=== PATIENT | male | born 1965 | race Caucasian/White ===

== ENCOUNTER 2023-11-05 07:13 | Day surgery (SDC) | payer OTHER ==
[~2023-11-05] VITALS: Ht 175.3 cm; Wt 71.9 kg
[~2023-11-05 07:13] MED LIST: LR 1,000 ML IV SCH; Ondansetron 4 MG/2 ML VIAL IV PRN
[2023-11-05 08:05] VITALS: BP 107/77; PULSE 81; TEMP 97.3
[2023-11-05] MEDS ORDERED: WELLBUTRIN XL150 MG PO (08:12)
[2023-11-05] MEDS ORDERED: ZOLOFT 100MG100 MG PO (08:12)
[2023-11-05] MEDS ORDERED: VOLTAREN GEL 1%1 TU TP (08:12)
[2023-11-05] MEDS ORDERED: ABILIFY5 MG PO (08:13)
--- NOTE | 2023-11-05 08:31 | NUR ---
The patient ambulated back to [place] [facility] independently using a steady gait and appeared to tolerate the activity well. Vital signs obtained. Consent signed. 20G IV started in right hand with one stick, LR infusing without difficulty. Assessment completed. Home medications reconcilled. Warm blanket provided. Denies any further needs at this time.
[2023-11-05] MEDS ORDERED: Lidocaine PF 2% (20 MG/ML) 5 ML VIAL ONE (09:25)
[2023-11-05 09:40] VITALS: BP 97/57; PULSE 70; TEMP 97.6
[2023-11-05 09:55] VITALS: BP 99/77; PULSE 68
--- NOTE | 2023-11-05 17:12 | NUR ---
0940: PT TO [facility] 1 FROM ENDO SUITE. AMBULATED FROM CART TO RECLINER X2 ASSIST. REPORT RECEIVED FROM ENDO NURSE. PT ALERT AND ORIENTED. DENIES PAIN OR NAUSEA. REQUESTING PUDDING AND WATER. RESTING IN RECLINER. CALL LIGHT IN REACH. NO FAMILY AT BEDSIDE. 0955: PT ALERT AND ORIENTED. TOLERATING PUDDING AND WATER. DENIES PAIN AND NAUSEA. RESTING IN RECLINER. CALL LIGHT IN REACH. 1000: DR. HELMS IN TO SPEAK WITH PT. DISCHARGE EDUCATION DONE AT THIS TIME. PT STATED UNDERSTANDING OF DC INSTRUCTIONS. DC PAPERWORK GIVEN TO PT. IV DC'D AT THIS TIME. PT DENIES ASSISTANCE WITH DRESSING. 1010: PT AMBULATED INDEPENDENTLY FROM RECLINER TO WHEELCHAIR. PT OFF UNIT AT THIS TIME. PT DC TO HOME WITH FAMILY PER PERSONAL VEHICLE.
== END 2023-11-05 10:10 | disposition home or self-care (01) ==
LOC: SDCO 07:13
DX: D12.4 Benign neoplasm of descending colon (principal); Z12.11 Encounter for screening for malignant neoplasm of colon; E11.9 Type 2 diabetes mellitus without complications; F17.210 Nicotine dependence, cigarettes, uncomplicated; Z98.0 Intestinal bypass and anastomosis status; Z90.49 Acquired absence of other specified parts of digestive tract
CPT/HCPCS: J2704; J7120